=== PATIENT | female | born 1945 | race Caucasian/White ===

== ENCOUNTER → 2020-12-06 | Outpatient (CLI) | payer MEDICARE, OTHER ==
--- NOTE | 2020-12-10 18:08 | RAD ---
DATE: 12/06/2020 EXAM: MAMMO EZEKIEL SCREENING BILATERAL HISTORY: Screening COMPARISON: 04/14/2019, 03/22/2018 This study was interpreted with the benefit of Computerized Aided Detection (CAD). Breast Density: HETERO The breast parenchyma is heterogenously dense, which could reduce sensitivity of mammography. Breast parenchyma level C. FINDINGS: Multiple bilateral benign-appearing masses are unchanged. Scattered benign calcifications are unchanged. No suspicious mass, architectural distortion, or suspicious calcifications. IMPRESSION: No evidence of malignancy. BI-RADS CATEGORY: 2 BENIGN FINDING(S) RECOMMENDED FOLLOW-UP: 12M 12 MONTH FOLLOW-UP PQRS compliance statement: Patient information was entered into a reminder system with a target due date for the next mammogram. Mammography is a sensitive method for finding small breast cancers, but it does not detect them all and is not a substitute for careful clinical examination. A negative mammogram does not negate a clinically suspicious finding and should not result in delay in biopsying a clinically suspicious abnormality. "Our facility is accredited by the [employer] Mammography Program."
== END ==
LOC: MAMMO 12:34
PROVIDERS: ATTEND Family Medicine
DX: Z12.31 Encounter for screening mammogram for malignant neoplasm of breast (principal)
CPT/HCPCS: 77063; 77067

== ENCOUNTER 2020-12-31 14:42 | Emergency (ER) | payer MEDICARE, OTHER ==
[~2020-12-31] VITALS: Ht 167.6 cm; Wt 92.9 kg
[2020-12-31] MEDS ORDERED: ONDANSETRON PF 4 MG/2 ML VIAL. IVP ONE (15:15)
[2020-12-31] MEDS ORDERED: IV NORMAL SALINE 1,000ML 1,000 ML IV ONE ×2 (15:15→17:45)
--- NOTE | 2020-12-31 15:29 | PHYS DOC ---
Past History Past Medical History: Cancer, Hypertension, Other Additional Past Medical Histor: SEPSIS X2 (NORMA MC APRN) Past Surgical History: Cholecystectomy, , Hysterectomy, Oophorectomy, Other Additional Past Surgical Histo: RU LOBECTOMY; ABD HERNIA REPAIR; R KNEE SCOPE (NORMA CM APRN) Alcohol Use: Sober Additional Alcohol Information: HX ETOH ABUSE (BOTTLE WINE NIGHTLY), NONE FOR 6 WEEKS Social History Narrative: 3 DAYS AGO (NORMA MC APRN) General Adult EDM: Chief Complaint: DIZZY/LIGHT HEADED HPI: HPI: Patient is a 75-year-old female who presents with dizziness, nausea and fatigue since yesterday. Patient states that she only has dizziness when she ambulates. Patient states that she is normally a daily drinker. Patient states that she drinks a bottle of wine a day and also smokes cigarettes daily. Patient denies fever, vomiting, diarrhea. Patient states "this is how I felt last time when I had to be hospitalized because I was septic". Patient has a history of COPD, hypertension, cancer. (NORMA MC APRN) Review of Systems: Review of Systems: Constitutional: Denies fever or chills Eyes: Denies change in visual acuity HENT: Denies nasal congestion or sore throat Respiratory: Denies cough or shortness of breath Cardiovascular: Denies chest pain or edema GI: Denies abdominal pain, vomiting. Reports nausea. : Denies dysuria Musculoskeletal: Denies back pain or joint pain Integument: Denies rash Neurologic: Denies headache, focal weakness or sensory changes. Reports dizziness with ambulation. Endocrine: Denies polyuria or polydipsia Lymphatic: Denies swollen glands Psychiatric: Denies depression or anxiety (NORMA MC APRN) Current Medications: Current Meds: Current Medications Medications (Trade) Dose Ordered Sig/Pk Start Time Stop Time Status Last Admin Dose Admin Ondansetron HCl (Zofran) 4 mg 1X ONCE 12/31/20 15:15 12/31/20 15:19 DC Sodium Chloride 1,000 ml @ 1,000 mls/hr 1X ONCE 12/31/20 15:15 12/31/20 16:14 (NORMA MC APRN) Allergies: Allergies: Allergies Coded Allergies Type Severity Reaction Last Updated Verified codeine Allergy Unknown 12/31/20 Yes (NORMA MC APRN) Physical Exam: PE: Constitutional: Well developed, well nourished, no acute distress, non-toxic appearance. [] HENT: Normocephalic, atraumatic, bilateral external ears normal, oropharynx moist, no oral exudates, nose normal. [] Eyes: PERRLA, EOMI, conjunctiva normal, no discharge. [] Neck: Normal range of motion, no tenderness, supple, no stridor. [] Cardiovascular:Heart rate regular rhythm, no murmur [] Lungs & Thorax: Expiratory lower lobe wheezes Abdomen: Bowel sounds normal, soft, no tenderness, no masses, no pulsatile masses. [] Skin: Warm, dry, no erythema, no rash. [] Back: No tenderness, no CVA tenderness. [] Extremities: No tenderness, no cyanosis, no clubbing, ROM intact, no edema. [] Neurologic: Alert and oriented X 3, normal motor function, normal sensory function, no focal deficits noted. [] Psychologic: Affect normal, judgement normal, mood normal. [] (NORMA MC BORDEREAU CLERK) Current Patient Data: Vital Signs: Vital Signs Date Time Temp Pulse Resp B/P (MAP) Pulse Ox O2 Delivery O2 Flow Rate FiO2 12/31/20 14:55 98.1 74 28 139/79 (99) 97 Room Air (NORMA MC APRN) EKG: EKG: [] Sinus rhythm. Heart rate 75 bpm. Intervals normal. [place] normal. (NORMA MC APRN) Radiology/Procedures: Radiology/Procedures: []EXAMINATION: CT HEAD/BRAIN WO (CT HEAD WITHOUT IV CONTRAST) CLINICAL HISTORY: Dizziness TECHNIQUE: Serial axial images without IV contrast were obtained from the vertex to the foramen magnum. CT Dose Reduction Employed: One or more of the following individualized dose reduction techniques were utilized for this examination: 1. Automated exposure control 2. Adjustment of the mA and/or kV according to patient size 3. Use of iterative reconstruction technique. COMPARISON: None FINDINGS: Acute Change: No evidence of an acute infarct or other acute parenchymal process. Hemorrhage: No evidence of acute intracranial hemorrhage. Mass Lesion/Mass Effect: 1.9 x 1.0 x 1.7 cm hyperdense extra-axial mass along the anteromedial aspect of the left middle cranial fossa with mild mass effect on the subjacent temporal lobe, suggestive of a calcified meningioma. No evidence of intracranial mass or extraaxial fluid collection. Chronic Change: No significant changes. Parenchyma: Mild generalized volume loss. Parenchyma otherwise within normal limits for age. Ventricles: Ventricles within normal limits for age. Paranasal Sinuses and Skull Base: Visualized paranasal sinuses clear. Visualized skull base and soft tissues unremarkable. IMPRESSION: No evidence of acute intracranial abnormality. 1.9 cm extra-axial mass in the left middle cranial fossa, suggestive of a calcified meningioma. Electronically signed by: Tevin Munoz DO (12/31/2020 3:40 PM) [facility] Clinical Indication: Reason: dizziness / Spl. Instructions: / History: Comparison: CT chest with contrast August 06, 2011. Findings: Cardiac size upper limits of normal. Atherosclerotic and tortuous thoracic aorta. Mild bibasilar airspace disease. There is no pneumothorax. No pleural effusion is appreciated. No acute bone abnormality. IMPRESSION: Mild bibasilar airspace disease, probably atelectasis or scarring. Electronically signed by: Osbaldo Gaston MD (12/31/2020 3:51 PM) [id number] (NORMA MC APRN) Heart Score: C/O Chest Pain: No Risk Factors: Risk Factors: DM, Current or recent (<one month) smoker, HTN, HLP, family history of CAD, obesity. Risk Scores: Score 0 - 3: 2.5% MACE over next 6 weeks - Discharge Home Score 4 - 6: 20.3% MACE over next 6 weeks - Admit for Clinical Observation Score 7 - 10: 72.7% MACE over next 6 weeks - Early Invasive Strategies (NORMA MC APRN) Course & Med Decision Making: Course & Med Decision Making Pertinent Labs and Imaging studies reviewed. (See chart for details) [] Patient presents emergency room for dizziness, nausea and fatigue since yesterday. Patient reports dizziness occurs when she ambulates only. Orthostatics were negative. Patient reports taking Zofran at home for nausea. Denies vomiting. Lower lobe wheezes noted on auscultation. Chest x-ray ordered to rule out acute abnormalities. CT of head without contrast ordered to rule out intracranial bleeding or abnormalities. Patient has a history of cancer. UA ordered to rule out infection. CBC, CMP, troponin and lactic ordered. EKG shows sinus rhythm. Heart rate [address] of head is negative for any abnormalities. Chest x-ray negative for acute abnormalities. WBC 7.6, lactic 3.3. Liter bolus , NS given for hydration. UA is negative for infection. Meclizine ordered to treat dizziness. Second liter of NS ordered for hydration and elevated lactic. Patient still reporting dizziness with ambulation. Patient stating that she wants to go home and follow-up with her PCP. Gave patient strict return precautions. Patient is appreciative and okay with discharge plan. Patient is hemodynamically stable on discharge and able to ambulate on her own the ER with family. (NORMA MC APRN) Dragon Disclaimer: Dragon Disclaimer: This electronic medical record was generated, in whole or in part, using a voice recognition dictation system. (NORMA MC APRN) Attending Co-Sign The patient was seen and interviewed as well as examined at the bedside. The chart was reviewed. The case was discussed. Agree with the plan of care. (SADI KERN DO) Departure Departure: Impression: Primary Impression: Dizziness Disposition: 01 HOME / SELF CARE / HOMELESS Condition: STABLE Referrals: RACH NEELY (PCP) Patient Instructions: Dizziness, Fdtn-[id number] Additional Instructions: You are seen in the emergency room for dizziness, fatigue and nausea. All of your lab work was unremarkable. Please follow-up with your PCP for further management if symptoms continue. Return to the emergency room with worsening symptoms or concerns. EMERGENCY DEPARTMENT GENERAL DISCHARGE INSTRUCTIONS Thank you for coming to [facility] (ED) today and trusting us with you care. We trust that you had a positivie experience in our Emergency Department. If you wish to speak to the department management, you may call the director at [phone]. YOUR FOLLOW UP INSTRUCTIONS ARE FOLLOWS: 1. Do you have a private Doctor? If you do not have a private doctor, please ask for a resource list of physicians or clinics that may be able to assist you with follow up care. 2. The Emergency Physician has interpreted your x-rays. The X-Ray specialist will also review them. If there is a change in the findings, you will be notified in 48 hours when at all possible. 3. A lab test or culture has been done, your results will be reviewed and you will be notified if you need a change in treatment. ADDITIONAL INSTRUCTIONS AND INFORMATION: 1. Your care today has been supervised by a physician who is specially trained in emergency care. Many problems require more than one evaluation for a complete diagnosis and treatment. We recommend that you schedule your follow up appointment as recommended to ensure complete treatment of you illness or injury. If you are unable to obtain follow up care and continue to have a problem, or if your condition worsens, we recommend that you return to the ED. 2. We are not able to safely determine your condition over the phone nor are we able to give sound medical advice over the phone. For these safety reasons, if you call for medical advice we will ask you to come to the ED for further evaluation. 3. If you have any questions regarding these discharge instructions please call the ED at [phone]. SAFETY INFORMATION: In the interest of safety, wellness, and injury prevention; we encourage you to wear your sealbelt, if you smoke; quite smoking, and we encourage family to use a protective helmet for bicycling and other sporting events that present an increased risk for head injury. IF YOUR SYMPTOMS WORSEN OR NEW SYMPTOMS DEVELOP, OR YOU HAVE CONCERNS ABOUT YOUR CONDITION; OR IF YOUR CONDITION WORSENS WHILE YOU ARE WAITING FOR YOUR FOLLOW UP APPOINTMENT; EITHER CONTACT YOUR PRIMARY CARE DOCTOR, THE PHYSICIAN WHOSE NAME AND NUMBER YOU WERE GIVEN, OR RETURN TO THE ED IMMEDIATELY. Scripts Ondansetron Hcl (ZOFRAN) 4 Mg Tablet 4 MG PO TID PRN PRN for NAUSEA, #9 TAB Prov: NORMA MC BORDEREAU CLERK 12/31/20 Nitrofurantoin Macrocrystal (NITROFURANTOIN) 100 Mg Capsule 1 CAP PO BID for infection for 5 Days, #9 CAP Prov: NORMA MC APRN 12/31/20 NORMA MC APRN December 31, 2020 15:29 SADI KERN DO January 03, 2021 08:29
--- NOTE | 2020-12-31 15:42 | RAD ---
EXAMINATION: CT HEAD/BRAIN WO (CT HEAD WITHOUT IV CONTRAST) CLINICAL HISTORY: Dizziness TECHNIQUE: Serial axial images without IV contrast were obtained from the vertex to the foramen magnu m. CT Dose Reduction Employed: One or more of the following individualized dose reduction techniques wer e utilized for this examination: 1. Automated exposure control 2. Adjustment of the mA and/or kV ac cording to patient size 3. Use of iterative reconstruction technique. COMPARISON: None FINDINGS: Acute Change: No evidence of an acute infarct or other acute parenchymal process. Hemorrhage: No evidence of acute intracranial hemorrhage. Mass Lesion/Mass Effect: 1.9 x 1.0 x 1.7 cm hyperdense extra-axial mass along the anteromedial aspect of the left middle cranial fossa with mild mass effect on the subjacent temporal lobe, suggestive of a calcified meningioma. No evidence of intracranial mass or extraaxial fluid collection. Chronic Change: No significant changes. Parenchyma: Mild generalized volume loss. Parenchyma otherwise within normal limits for age. Ventricles: Ventricles within normal limits for age. Paranasal Sinuses and Skull Base: Visualized paranasal sinuses clear. Visualized skull base and soft tissues unremarkable. IMPRESSION: No evidence of acute intracranial abnormality. 1.9 cm extra-axial mass in the left middle cranial fossa, suggestive of a calcified meningioma. Electronically signed by: Tevin Munoz DO (12/31/2020 3:40 PM) LINDA
--- NOTE | 2020-12-31 15:54 | RAD ---
XR CHEST 1V Clinical Indication: Reason: dizziness / Spl. Instructions: / History: Comparison: CT chest with contrast August 06, 2011. Findings: Cardiac size upper limits of normal. Atherosclerotic and tortuous thoracic aorta. Mild bibasilar airs pace disease. There is no pneumothorax. No pleural effusion is appreciated. No acute bone abnormality . IMPRESSION: Mild bibasilar airspace disease, probably atelectasis or scarring. Electronically signed by: Osbaldo Gaston MD (12/31/2020 3:51 PM) [id number]
--- NOTE | 2020-12-31 15:54 | EKG ---
[address] [address] Test Date: 2020-12-31 Test Time: 14:52:07 Pat Name: MAL NAYLOR Department: Room: Gender: F Financial Sales Professional: MATY : 1945 Requested By: NORMA MC Order Number: [id number] Reading MD: Measurements Intervals [place] Rate: 75 P: 12 IA: 166 QRS: -6 QRSD: 84 T: 31 QT: 408 QTc: 458 Interpretive Statements SINUS RHYTHM LEFTWARD AXIS OTHERWISE NORMAL ECG RI6.02 No previous ECG available for comparison
[2020-12-31 16:04] LABS: BASO # 0.1 x10^3/uL (0.0-0.2); BASO % 1 % (0-3); EOS % 1 % (0-3); HEMATOCRIT 45.6 % (36.0-47.0); HEMOGLOBIN 15.1 g/dL (12.0-15.5); LYMPH # 1.4 x10^3/uL (1.0-4.8); LYMPH % 18 % (24-48); MEAN CORPUSCULAR HEMOGLOBIN 32 pg (25-35); MEAN CORPUSCULAR HGB CONC 33 g/dL (31-37); MEAN CORPUSCULAR VOLUME 97 fL (79-100); MONO # 0.6 x10^3/uL (0.0-1.1); MONO % 7 % (0-9); NEUT # 5.5 x10^3uL (1.8-7.7); NEUT % 73 % (31-73); PLATELET COUNT 320 x10^3/uL (140-400); RED BLOOD COUNT 4.69 x10^6/uL (3.50-5.40); RED CELL DISTRIBUTION WIDTH 14.3 % (11.5-14.5); WHITE BLOOD COUNT 7.6 x10^3/uL (4.0-11.0)
[2020-12-31 16:11] LABS: BILIRUBIN,URINE NEG (NEG); CLARITY,URINE CLEAR; COLOR,URINE YELLOW; GLUCOSE,URINE NEG (NEG)
[2020-12-31 16:12] LABS: NITRITE,URINE POS (NEG)
[2020-12-31 16:13] LABS: RBC,URINE 0 /HPF (0-2)
[2020-12-31 16:14] LABS: BACTERIA,URINE MANY /HPF (0-FEW); WBC,URINE OCC /HPF (0-4)
[2020-12-31 16:15] LABS: SQUAMOUS EPITHELIAL CELL,UR OCC /LPF
[2020-12-31 16:24] LABS: ALBUMIN/GLOBULIN RATIO 1.1 (1.0-1.7); CALCIUM 9.3 mg/dL (8.5-10.1); CREATININE 0.9 mg/dL (0.6-1.0); GFR 61.2; POTASSIUM 3.7 mmol/L (3.5-5.1); TOTAL BILIRUBIN 0.7 mg/dL (0.2-1.0); TOTAL PROTEIN 7.8 g/dL (6.4-8.2)
[2020-12-31] MEDS ORDERED: MECLIZINE 12.5 MG TABLET. PO ONE (17:30)
[2020-12-31] MEDS ORDERED: NITR100C PO (19:19)
[2020-12-31] MEDS ORDERED: ONDA4TAB7 PO (19:19)
[2020-12-31 19:30] VITALS: BP 122/81
[2020-12-31] MEDS ORDERED: NITROFURANTOIN MONOHYD/M-CRYST 100 MG CAPSULE. PO ONE (19:30)
== END 2020-12-31 19:30 | disposition home or self-care (01) ==
LOC: ER 14:42
DX: R42 Dizziness and giddiness (principal); R11.0 Nausea; R53.83 Other fatigue; I10 Essential (primary) hypertension; F17.210 Nicotine dependence, cigarettes, uncomplicated; Z88.5 Allergy status to narcotic agent
CPT/HCPCS: 36415; 70450; 71045; 80053; 81001; 83605; 84484; 85025; 87086; 93005; 96361; 96374; 99285; J2405; J7030

== ENCOUNTER 2021-08-14 12:49 | Emergency (ER) | payer OTHER, MEDICARE ==
[~2021-08-14] VITALS: Ht 167.6 cm; Wt 90.6 kg
[~2021-08-14 12:49] MED LIST: NITR100C PO; ONDA4TAB7 PO
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
[2021-08-14] MEDS ORDERED: ACETAMINOPHEN 500 MG TABLET PO ONE (14:15)
[2021-08-14] MEDS ORDERED: IBUPROFEN 600 MG TABLET. PO ONE (14:15)
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
[2021-08-14] MEDS ORDERED: CYCL10TA19 PO (14:56)
[2021-08-14] MEDS ORDERED: METH4TAB2 PO (14:56)
[2021-08-14] MEDS ORDERED: HYDR-2155 PO (15:00)
[2021-08-14 15:04] VITALS: BP 154/97
== END 2021-08-14 15:05 | disposition home or self-care (01) ==
LOC: ER 12:49
DX: S13.9XXA Sprain of joints and ligaments of unspecified parts of neck, initial encounter (principal); S23.3XXA Sprain of ligaments of thoracic spine, initial encounter; S20.211A Contusion of right front wall of thorax, initial encounter; S40.011A Contusion of right shoulder, initial encounter; S25.09XA Other specified injury of thoracic aorta, initial encounter; M54.50 Low back pain, unspecified; R91.1 Solitary pulmonary nodule; V43.52XA Car driver injured in collision with other type car in traffic accident, initial encounter; Y93.89 Activity, other specified; Y92.488 Other paved roadways as the place of occurrence of the external cause; Y99.8 Other external cause status
CPT/HCPCS: 71250; 72125; 72128; 72131; 73030; 99284-25

== ENCOUNTER → 2021-12-08 | Outpatient (CLI) | payer MEDICARE, OTHER ==
[~2021-12-08] MED LIST changes: +CYCL10TA19 PO; +HYDR-2155 PO; +METH4TAB2 PO
--- NOTE | 2021-12-08 12:13 | RAD ---
INDICATION: 76 years of age asymptomatic female patient presents for screening mammography. TECHNIQUE: Full field craniocaudal and mediolateral oblique images of both breasts were obtained usi ng digital technique with tomosynthesis and also analyzed with computer-aided detection software. COMPARISON: Prior mammographic imaging dating back to 04/14/2019. BREAST COMPOSITION: Category B: There are scattered fibroglandular densities. FINDINGS: Stable nodular parenchymal pattern in both breast . Stable scattered benign bilateral calcifications. No suspicious masses, microcalcifications or architectural distortion is present to suggest malignanc y in either breast. The visualized axillae are unremarkable. IMPRESSION: No mammographic evidence of malignancy. RECOMMENDATION: Annual screening mammography is recommended, unless clinically indicated sooner based on symptoms or change in physical exam. BIRADS 2: BENIGN This study was interpreted with the benefit of Computerized Aided Detection (CAD). Patient information is entered into the reminder system with a target due date for the next screening mammogram. Mammography is the most sensitive method for finding small breast cancers, but it does not detect the m all and is not a substitute for careful clinical examination. A negative mammogram does not negate a clinically suspicious finding and should not result in delay in biopsying a clinically suspicious a bnormality. "Our facility is accredited by the [employer] Mammography Program." Electronically signed by: Claude Russo DO (12/08/2021 12:10 PM) [email or web address]
== END ==
LOC: MAMMO 10:55
PROVIDERS: ATTEND Family Medicine
DX: Z12.31 Encounter for screening mammogram for malignant neoplasm of breast (principal)
CPT/HCPCS: 77063; 77067